=== PATIENT | male | born 1995 | race American Indian/Alaskan Native ===

== ENCOUNTER 2022-12-04 14:07 | Emergency (ER) | payer OTHER ==
[~2022-12-04] VITALS: Ht 177.8 cm; Wt 77.6 kg
--- OUTSIDE RECORDS SUMMARY | ~2022-12-04 | XMS | Continuity of Care Document ---
Demographics + + + | Address | [address] | | | [place] [address] | + + + | Preferred Language | Unknown | + + + | Marital Status | Never | + + + | Congregational Affiliation | Unknown | + + + | Race | or | + + + | Ethnic Group | Not or | + + + Author + + + | Author | [facility] | + + + | Organization | [facility] | + + + | Address | [address] [place] [address] | | | [place] [address] | + + + | Phone | | + + + Care Team Providers + + + + | Care Crisis Nurse Name | Role | Phone | + + + + Unavailable | Unavailable | + + + + Unavailable | Unavailable | + + + + Unavailable | Unavailable | + + + + Unavailable | Unavailable | + + + + Unavailable | Unavailable | + + + + Unavailable | Unavailable | + + + + Allergies and Intolerances + + + + + + | date | description | facility | reaction | severity | + + + + + + | (no date) | Mild | [facility] | (no reaction) | (no severity) | | | [facility] | | | + + + + + + | (no date) | No Known Drug | [facility] | (no reaction) | (no severity) | | | Allergies | | | | + + + + + + | (no date) | NO KNOWN | [facility] | (no reaction) | (no severity) | | | ALLERGIES | | | | + + + + + + Encounters No information. Functional Status No information. Immunizations + + + + | date | description | facility | + + + + | 2022-11-07 00:00 | No vaccine administered | [facility] | + + + + Medications + + + + | date | description | facility | + + + + | 2022-11-08 00:00 | | [facility] | | | SULFAMETHOXAZOLE/TRIMETHOPR | | | | IM DS | | + + + + | 2022-11-08 00:00 | | [facility] | | | SULFAMETHOXAZOLE/TRIMETHOPR | | | | IM DS | | + + + + Problems + + + + | date | description | facility | + + + + | 2021-12-04 00:00 | Leukocytosis | [facility] | + + + + | 2021-12-04 00:00 | Leukocytosis | [facility] | + + + + | 2021-12-04 00:00 | Leukocytosis | [facility] | + + + + | 2021-12-04 00:00 | Leukocytosis | [facility] | + + + + | 2021-12-04 00:00 | Acute renal failure | [facility] | + + + + | 2021-12-04 00:00 | Acute renal failure | [facility] | + + + + | 2021-12-04 00:00 | Acute renal failure | [facility] | + + + + | 2021-12-04 00:00 | Acute renal failure | [facility] | + + + + | 2022-01-03 14:09:40 | Withdrawal | [facility] | + + + + | 2022-01-03 15:00:07 | Opioid dependence with | [facility] | | | withdrawal | | + + + + | 2022-01-11 22:27:40 | Strain of unspecified | [facility] | | | muscle and tendon at ankle | | | | and foot level, left foot, | | | | initial encounter | | + + + + | 2022-11-07 00:00 | Skin disorder | [facility] | + + + + | 2022-11-07 00:00 | Skin disorder | [facility] | + + + + | 2022-11-07 00:00 | Skin disorder | [facility] | + + + + | 2022-11-08 00:00 | Cellulitis of left lower | [facility] | | | extremity | | + + + + | 2022-11-08 00:00 | Cellulitis of left lower | [facility] | | | extremity | | + + + + | 2022-11-08 08:05 | CELLULITIS OF LEFT LOWER | [facility] | | | LIMB | | + + + + | 2022-11-08 08:05 | TACHYCARDIA, UNSPECIFIED | [facility] | + + + + | 2022-12-03 00:00 | Patient left without being | [facility] | | | seen | | + + + + Procedures No information. Results/Labs +--------+--------+ +---------+--------+---------+ | test | date | facility | value | unit | notes | +--------+--------+ +---------+--------+---------+ + + | Result panel 1 | + + + + + + +---------+ + | | 2021-12-04 | [facility] | 425.24 | mg/dL | (missing) | | (unavailable | 19:48 | [facility] | | | | + + + + +---------+ + + + | Result panel 2 | + + + + + +------+ + + | | 2021-12-04 | [facility] | 26 | (missing) | (missing) | | (unavailable | 19:48 | [facility] | | | | + + + +------+ + + + + | Result panel 3 | + + + + + + + + + | | 2021-12-04 | [facility] | NEGATIVE | (missing) | (missing) | | (unavailable | 19:48 | [facility] | | | | + + + + + + + + + | Result panel 4 | + + + + + + + + + | | 2021-12-04 | [facility] | POSITIVE | (missing) | (missing) | | (unavailable | 19:48 | [facility] | | | | + + + + + + + + + | Result panel 5 | + + + + + + + + + | | 2021-12-04 | [facility] | NEGATIVE | (missing) | (missing) | | (unavailable | 19:48 | [facility] | | | | + + + + + + + + + | Result panel 6 | + + + + + + + + + | | 2021-12-04 | [facility] | NEGATIVE | (missing) | (missing) | | (unavailable | 19:48 | [facility] | | | | + + + + + + + + + | Result panel 7 | + + + + + + + + + | | 2021-12-04 | [facility] | NEGATIVE | (missing) | (missing) | | (unavailable | 19:48 | [facility] | | | | + + + + + + + + + | Result panel 8 | + + + + + + + + + | | 2021-12-04 | [facility] | NEGATIVE | (missing) | (missing) | | (unavailable | 19:48 | [facility] | | | | + + + + + + + + + | Result panel 9 | + + + + + + + + + | | 2021-12-04 | [facility] | NEGATIVE | (missing) | (missing) | | (unavailable | 19:48 | [facility] | | | | + + + + + + + + + | Result panel 10 | + + + + + + + + + | | 2021-12-04 | [facility] | NEGATIVE | (missing) | (missing) | | (unavailable | 19:48 | [facility] | | | | + + + + + + + + + | Result panel 11 | + + + + + + + + + | | 2021-12-04 | [facility] | NEGATIVE | (missing) | (missing) | | (unavailable | 19:48 | [facility] | | | | + + + + + + + + + | Result panel 12 | + + + + + + + + + | | 2021-12-04 | [facility] | POSITIVE | (missing) | (missing) | | (unavailable | 19:48 | [facility] | | | | + + + + + + + + + | Result panel 13 | + + + + + + + + + | | 2021-12-04 | [facility] | NEGATIVE | (missing) | (missing) | | (unavailable | 19:48 | [facility] | | | | + + + + + + + + + | Result panel 14 | + + + + + + + + + | | 2021-12-04 | [facility] | NEGATIVE | (missing) | (missing) | | (unavailable | 19:48 | [facility] | | | | + + + + + + + + + | Result panel 15 | + + + + + + + + + | | 2021-12-04 | [facility] | NEGATIVE | (missing) | (missing) | | (unavailable | 19:48 | [facility] | | | | + + + + + + + + + | Result panel 16 | + + + + + + + + + | | 2021-12-04 | [facility] | SEE SCANNED | (missing) | (missing) | | (unavailable | 19:48 | [facility] REPORT | | | | ) | | [facility] | | | | + + + + + + + + + | Result panel 17 | + + + + + + + + + | | 2021-12-04 | [facility] | YELLOW | (missing) | (missing) | | (unavailable | 19:48 | [facility] | | | | + + + + + + + + + | Result panel 18 | + + + + + + + + + | | 2021-12-04 | [facility] | CLOUDY | (missing) | (missing) | | (unavailable | 19:48 | [facility] | | | | + + + + + + + + + | Result panel 19 | + + + + + + + + + | | 2021-12-04 | [facility] | NEGATIVE | (missing) | (missing) | | (unavailable | 19:48 | [facility] | | | | + + + + + + + + + | Result panel 20 | + + + + + + + + + | | 2021-12-04 | [facility] | POSITIVE | (missing) | (missing) | | (unavailable | 19:48 | [facility] | | | | + + + + + + + + + | Result panel 21 | + + + + + + + + + | | 2021-12-04 | [facility] | NEGATIVE | (missing) | (missing) | | (unavailable | 19:48 | [facility] | | | | + + + + + + + + + | Result panel 22 | + + + + + + + + + | | 2021-12-04 | [facility] | >=1.030 | (missing) | (missing) | | (unavailable | 19:48 | [facility] | | | | + + + + + + + + + | Result panel 23 | + + + + + + + + + | | 2021-12-04 | [facility] | NEGATIVE | (missing) | (missing) | | (unavailable | 19:48 | [facility] | | | | + + + + + + + + + | Result panel 24 | + + + + + +-------+ + + | | 2021-12-04 | [facility] | 5.5 | (missing) | (missing) | | (unavailable | 19:48 | [facility] | | | | + + + +-------+ + + + + | Result panel 25 | + + + + + +------+ + + | | 2021-12-04 | [facility] | 30 | (missing) | (missing) | | (unavailable | 19:48 | [facility] | | | | + + + +------+ + + + + | Result panel 26 | + + + + + + + + + | | 2021-12-04 | [facility] | NORMAL | (missing) | (missing) | | (unavailable | 19:48 | [facility] | | | | + + + + + + + + + | Result panel 27 | + + + + + + + + + | | 2021-12-04 | [facility] | NEGATIVE | (missing) | (missing) | | (unavailable | 19:48 | [facility] | | | | + + + + + + + + + | Result panel 28 | + + + + + + + + + | | 2021-12-04 | [facility] | NEGATIVE | (missing) | (missing) | | (unavailable | 19:48 | [facility] | | | | + + + + + + + + + | Result panel 29 | + + + + + +-------+ + + | | 2021-12-04 | [facility] | 5.0 | (missing) | (missing) | | (unavailable | 20:44 | [facility] | | | | + + + +-------+ + + + + | Result panel 30 | + + + + + +--------+ + + | | 2021-12-04 | [facility] | 1.00 | (missing) | (missing) | | (unavailable | 20:44 | [facility] | | | | + + + +--------+ + + + + | Result panel 31 | + + + + + +-------+ + + | | 2021-12-04 | [facility] | 1.0 | (missing) | (missing) | | (unavailable | 20:44 | [facility] | | | | + + + +-------+ + + + + | Result panel 32 | + + + + + +------+ + + | | 2021-12-04 | [facility] | 29 | (missing) | (missing) | | (unavailable | 20:44 | [facility] | | | | + + + +------+ + + + + | Result panel 33 | + + + + + +------+ + + | | 2021-12-04 | [facility] | 27 | (missing) | (missing) | | (unavailable | 20:44 | [facility] | | | | + + + +------+ + + + + | Result panel 34 | + + + + + +-------+ + + | | 2021-12-04 | [facility] | 104 | (missing) | (missing) | | (unavailable | 20:44 | [facility] | | | | + + + +-------+ + + + + | Result panel 35 | + + + + + +---------+ + + | | 2021-12-04 | [facility] | 1.059 | (missing) | (missing) | | (unavailable | 20:44 | [facility] | | | | + + + +---------+ + + + + | Result panel 36 | + + + + + +------+ + + | | 2021-12-04 | [facility] | <3 | (missing) | (missing) | | (unavailable | 20:44 | [facility] | | | | + + + +------+ + + + + | Result panel 37 | + + + + + +------+ + + | | 2021-12-04 | [facility] | 86 | (missing) | (missing) | | (unavailable | 20:44 | [facility] | | | | + + + +------+ + + + + | Result panel 38 | + + + + + +-----+ + + | | 2021-12-04 | [facility] | 9 | (missing) | (missing) | | (unavailable | 20:44 | [facility] | | | | + + + +-----+ + + + + | Result panel 39 | + + + + + +-----+ + + | | 2021-12-04 | [facility] | 3 | (missing) | (missing) | | (unavailable | 20:44 | [facility] | | | | + + + +-----+ + + + + | Result panel 40 | + + + + + +-----+ + + | | 2021-12-04 | [facility] | 2 | (missing) | (missing) | | (unavailable | 20:44 | [facility] | | | | + + + +-----+ + + + + | Result panel 41 | + + + + + + + + + | | 2021-12-04 | [facility] | PRESENT | (missing) | (missing) | | (unavailable | 20:44 | [facility] | | | | + + + + + + + + + | Result panel 42 | + + + + + + + + + | | 2021-12-04 | [facility] | PRESENT | (missing) | (missing) | | (unavailable | 20:44 | [facility] | | | | + + + + + + + + + | Result panel 43 | + + + + + + + + + | | 2021-12-04 | [facility] | MARKED | (missing) | (missing) | | (unavailable | 20:44 | [facility] | | | | + + + + + + + + + | Result panel 44 | + + + + + +--------+ + + | | 2021-12-04 | [facility] | 10.0 | (missing) | (missing) | | (unavailable | 20:44 | [facility] | | | | + + + +--------+ + + + + | Result panel 45 | + + + + + +-------+ + + | | 2021-12-04 | [facility] | 5.0 | (missing) | (missing) | | (unavailable | 20:44 | [facility] | | | | + + + +-------+ + + + + | Result panel 46 | + + + + + + + + + | | 2021-12-04 | [facility] | NEGATIVE | (missing) | (missing) | | (unavailable | 22:08 | [facility] | | | | + + + + + + + + + | Result panel 47 | + + + + + + + + + | | 2021-12-04 | [facility] | NEGATIVE | (missing) | (missing) | | (unavailable | 22:08 | [facility] | | | | + + + + + + + + + | Result panel 48 | + + + + + + + + + | | 2021-12-04 | [facility] | NEGATIVE | (missing) | (missing) | | (unavailable | 22:08 | [facility] | | | | + + + + + + + + + | Result panel 49 | + + + + + + + + + | | 2021-12-04 | [facility] | NEGATIVE | (missing) | (missing) | | (unavailable | 22:08 | [facility] | | | | + + + + + + + + + | Result panel 50 | + + + + + +-------+ + + | | 2021-12-04 | [facility] | 0.8 | (missing) | (missing) | | (unavailable | 22:44 | [facility] | | | | + + + +-------+ + + + + | Result panel 51 | + + + + + + + + + | | 2021-12-05 | [facility] | SEE COMMENT | (missing) | (missing) | | (unavailable | 05:20 | [facility] | | | | + + + + + + + + + | Result panel 52 | + + + + + +-------+ + + | | 2021-12-05 | [facility] | 407 | (missing) | (missing) | | (unavailable | 05:20 | [facility] | | | | + + + +-------+ + + + + | Result panel 53 | + + + + + + + + + | | 2021-12-05 | [facility] | SEE SCANNED | (missing) | (missing) | | (unavailable | 05:20 | [facility] | | [facility] | | | | + + + + + + + + + | Result panel 54 | + + + + + + + + + | | 2021-12-05 | [facility] | SEE SCANNED | (missing) | (missing) | | (unavailable | 05:20 | [facility] | | [facility] | | | | + + + + + + + + + | Result panel 55 | + + + + + +-------+ + + | | 2021-12-06 | [facility] | 8.3 | (missing) | (missing) | | (unavailable | 05:34 | [facility] | | | | + + + +-------+ + + + + | Result panel 56 | + + + + + +--------+ + + | | 2021-12-06 | [facility] | 4.68 | (missing) | (missing) | | (unavailable | 05:34 | [facility] | | | | + + + +--------+ + + + + | Result panel 57 | + + + + + +-------+ + + | | 2021-12-06 | [facility] | 9.5 | (missing) | (missing) | | (unavailable | 05:34 | [facility] | | | | + + + +-------+ + + + + | Result panel 58 | + + + + + +--------+ + + | | 2021-12-06 | [facility] | 30.3 | (missing) | (missing) | | (unavailable | 05:34 | [facility] | | | | + + + +--------+ + + + + | Result panel 59 | + + + + + +--------+ + + | | 2021-12-06 | [facility] | 64.8 | (missing) | (missing) | | (unavailable | 05:34 | [facility] | | | | + + + +--------+ + + + + | Result panel 60 | + + + + + +--------+ + + | | 2021-12-06 | [facility] | 20.3 | (missing) | (missing) | | (unavailable | 05:34 | [facility] | | | | + + + +--------+ + + + + | Result panel 61 | + + + + + +--------+ + + | | 2021-12-06 | [facility] | 31.3 | (missing) | (missing) | | (unavailable | 05:34 | [facility] | | | | + + + +--------+ + + + + | Result panel 62 | + + + + + +--------+ + + | | 2021-12-06 | [facility] | 16.6 | (missing) | (missing) | | (unavailable | 05:34 | [facility] | | | | + + + +--------+ + + + + | Result panel 63 | + + + + + +-------+ + + | | 2021-12-06 | [facility] | 364 | (missing) | (missing) | | (unavailable | 05:34 | [facility] | | | | + + + +-------+ + + + + | Result panel 64 | + + + + + +--------+ + + | | 2021-12-06 | [facility] | 59.4 | (missing) | (missing) | | (unavailable | 05:34 | [facility] | | | | + + + +--------+ + + + + | Result panel 65 | + + + + + +--------+ + + | | 2021-12-06 | [facility] | 26.8 | (missing) | (missing) | | (unavailable | 05:34 | [facility] | | | | + + + +--------+ + + + + | Result panel 66 | + + + + + +-------+ + + | | 2021-12-06 | [facility] | 9.1 | (missing) | (missing) | | (unavailable | 05:34 | [facility] | | | | + + + +-------+ + + + + | Result panel 67 | + + + + + +-------+ + + | | 2021-12-06 | [facility] | 4.2 | (missing) | (missing) | | (unavailable | 05:34 | [facility] | | | | + + + +-------+ + + + + | Result panel 68 | + + + + + +-------+ + + | | 2021-12-06 | [facility] | 0.5 | (missing) | (missing) | | (unavailable | 05:34 | [facility] | | | | + + + +-------+ + + + + | Result panel 69 | + + + + + +------+---------+ + | | 2021-12-06 | [facility] | 97 | mg/dL | (missing) | | (unavailable | 05:34 | [facility] | | | | + + + +------+---------+ + + + | Result panel 70 | + + + + + +------+---------+ + | | 2021-12-06 | [facility] | 23 | mg/dL | (missing) | | (unavailable | 05:34 | [facility] | | | | + + + +------+---------+ + + + | Result panel 71 | + + + + + +--------+---------+ + | | 2021-12-06 | [facility] | 0.98 | mg/dL | (missing) | | (unavailable | 05:34 | [facility] | | | | + + + +--------+---------+ + + + | Result panel 72 | + + + + + +-------+ + + | | 2021-12-06 | [facility] | 110 | (missing) | (missing) | | (unavailable | 05:34 | [facility] | | | | + + + +-------+ + + + + | Result panel 73 | + + + + + +---------+ + + | | 2021-12-06 | [facility] | 23.46 | (missing) | (missing) | | (unavailable | 05:34 | [facility] | | | | + + + +---------+ + + + + | Result panel 74 | + + + + + +-------+ + + | | 2021-12-06 | [facility] | 140 | (missing) | (missing) | | (unavailable | 05:34 | [facility] | | | | + + + +-------+ + + + + | Result panel 75 | + + + + + +-------+ + + | | 2021-12-06 | [facility] | 4.7 | (missing) | (missing) | | (unavailable | 05:34 | [facility] | | | | + + + +-------+ + + + + | Result panel 76 | + + + + + +-------+ + + | | 2021-12-06 | [facility] | 107 | (missing) | (missing) | | (unavailable | 05:34 | [facility] | | | | + + + +-------+ + + + + | Result panel 77 | + + + + + +------+ + + | | 2021-12-06 | [facility] | 29 | (missing) | (missing) | | (unavailable | 05:34 | [facility] | | | | + + + +------+ + + + + | Result panel 78 | + + + + + +-------+ + + | | 2021-12-06 | [facility] | 8.7 | (missing) | (missing) | | (unavailable | 05:34 | [facility] | | | | + + + +-------+ + + + + | Result panel 79 | + + + + + +-------+---------+ + | | 2021-12-06 | [facility] | 8.2 | mg/dL | (missing) | | (unavailable | 05:34 | [facility] | | | | + + + +-------+---------+ + + + | Result panel 80 | + + + + + +--------+ + + | | 2022-11-08 | [facility] | 16.0 | (missing) | (missing) | | (unavailable | 08:41:07 | [facility] | | | | + + + +--------+ + + + + | Result panel 81 | + + + + + +------+ + + | | 2022-11-08 | [facility] | 74 | (missing) | (missing) | | (unavailable | 08:41:07 | [facility] | | | | + + + +------+ + + + + | Result panel 82 | + + + + + +------+ + + | | 2022-11-08 | [facility] | 15 | (missing) | (missing) | | (unavailable | 08:41:07 | [facility] | | | | + + + +------+ + + + + | Result panel 83 | + + + + + +-----+ + + | | 2022-11-08 | [facility] | 7 | (missing) | (missing) | | (unavailable | 08:41:07 | [facility] | | | | + + + +-----+ + + + + | Result panel 84 | + + + + + +-----+ + + | | 2022-11-08 | [facility] | 3 | (missing) | (missing) | | (unavailable | 08:41:07 | [facility] | | | | + + + +-----+ + + + + | Result panel 85 | + + + + + +-----+ + + | | 2022-11-08 | [facility] | 1 | (missing) | (missing) | | (unavailable | 08:41:07 | [facility] | | | | + + + +-----+ + + + + | Result panel 86 | + + + + + + + + + | | 2022-11-08 | [facility] | PRESENT | (missing) | (missing) | | (unavailable | 08:41:07 | [facility] | | | | + + + + + + + + + | Result panel 87 | + + + + + + + + + | | 2022-11-08 | [facility] | MARKED | (missing) | (missing) | | (unavailable | 08:41:07 | [facility] | | | | + + + + + + + + + | Result panel 88 | + + + + + + + + + | | 2022-11-08 | [facility] | MARKED | (missing) | (missing) | | (unavailable | 08:41:07 | [facility] | | | | + + + + + + + + + | Result panel 89 | + + + + + + + + + | | 2022-11-08 | [facility] | SEE | (missing) | (missing) | | (unavailable | 08:41:07 | [facility] COMMENTS | | | [facility] | | [facility] | | | | + + + + + + + + + | Result panel 90 | + + + + + + + + + | | 2022-11-08 | [facility] | SEE | (missing) | (missing) | | (unavailable | 08:41:07 | [facility] COMMENTS [facility] | [facility] | | [facility] | | | | + + + + + + + + + | Result panel 91 | + + + + + +--------+ + + | | 2022-11-08 | [facility] | 4.89 | (missing) | (missing) | | (unavailable | 08:41:07 | [facility] | | | | + + + +--------+ + + + + | Result panel 92 | + + + + + +-------+---------+ + | | 2022-11-08 | [facility] | 101 | mg/dL | (missing) | | (unavailable | 08:41:07 | [facility] | | | | + + + +-------+---------+ + + + | Result panel 93 | + + + + + +------+---------+ + | | 2022-11-08 | [facility] | 12 | mg/dL | (missing) | | (unavailable | 08:41:07 | [facility] | | | | + + + +------+---------+ + + + | Result panel 94 | + + + + + +--------+---------+ + | | 2022-11-08 | [facility] | 1.15 | mg/dL | (missing) | | (unavailable | 08:41:07 | [facility] | | | | + + + +--------+---------+ + + + | Result panel 95 | + + + + + +------+ + + | | 2022-11-08 | [facility] | 90 | (missing) | (missing) | | (unavailable | 08:41:07 | [facility] | | | | + + + +------+ + + + + | Result panel 96 | + + + + + +---------+ + + | | 2022-11-08 | [facility] | 10.43 | (missing) | (missing) | | (unavailable | 08:41:07 | [facility] | | | | + + + +---------+ + + + + | Result panel 97 | + + + + + +-------+ + + | | 2022-11-08 | [facility] | 133 | (missing) | (missing) | | (unavailable | 08:41:07 | [facility] | | | | + + + +-------+ + + + + | Result panel 98 | + + + + + +-------+ + + | | 2022-11-08 | [facility] | 3.4 | (missing) | (missing) | | (unavailable | 08:41:07 | [facility] | | | | + + + +-------+ + + + + | Result panel 99 | + + + + + +------+ + + | | 2022-11-08 | [facility] | 93 | (missing) | (missing) | | (unavailable | 08:41:07 | [facility] | | | | + + + +------+ + + + + | Result panel 100 | + + + + + +------+ + + | | 2022-11-08 | [facility] | 34 | (missing) | (missing) | | (unavailable | 08:41:07 | [facility] | | | | + + + +------+ + + + + | Result panel 101 | + + + + + +-------+ + + | | 2022-11-08 | [facility] | 9.4 | (missing) | (missing) | | (unavailable | 08:41:07 | [facility] | | | | + + + +-------+ + + + + | Result panel 102 | + + + + + +-------+ + + | | 2022-11-08 | [facility] | 9.6 | (missing) | (missing) | | (unavailable | 08:41:07 | [facility] | | | | + + + +-------+ + + + + | Result panel 103 | + + + + + +-------+---------+ + | | 2022-11-08 | [facility] | 8.7 | mg/dL | (missing) | | (unavailable | 08:41:07 | [facility] | | | | + + + +-------+---------+ + + + | Result panel 104 | + + + + + +-------+ + + | | 2022-11-08 | [facility] | 7.7 | (missing) | (missing) | | (unavailable | 08:41:07 | [facility] | | | | + + + +-------+ + + + + | Result panel 105 | + + + + + +-------+ + + | | 2022-11-08 | [facility] | 3.4 | (missing) | (missing) | | (unavailable | 08:41:07 | [facility] | | | | + + + +-------+ + + + + | Result panel 106 | + + + + + +-------+ + + | | 2022-11-08 | [facility] | 4.3 | (missing) | (missing) | | (unavailable | 08:41:07 | [facility] | | | | + + + +-------+ + + + + | Result panel 107 | + + + + + +--------+ + + | | 2022-11-08 | [facility] | 0.79 | (missing) | (missing) | | (unavailable | 08:41:07 | [facility] | | | | + + + +--------+ + + + + | Result panel 108 | + + + + + +-------+ + + | | 2022-11-08 | [facility] | 1.0 | (missing) | (missing) | | (unavailable | 08:41:07 [facility] | | | | + + + +-------+ + + + + | Result panel 109 | + + + + + +-------+ + + | | 2022-11-08 | [facility] | 135 | (missing) | (missing) | | (unavailable | 08:41:07 | [facility] | | | | + + + +-------+ + + + + | Result panel 110 | + + + + + +-------+ + + | | 2022-11-08 | [facility] | 185 | (missing) | (missing) | | (unavailable | 08:41:07 [facility] | | | | + + + +-------+ + + + + | Result panel 111 | + + + + + +------+ + + | | 2022-11-08 | [facility] | 96 | (missing) | (missing) | | (unavailable | 08:41:07 [facility] | | | | + + + +------+ + + + + | Result panel 112 | + + + + + +--------+ + + | | 2022-11-08 | [facility] | 30.2 | (missing) | (missing) | | (unavailable | 08:41:07 [facility] | | | | + + + +--------+ + + + + | Result panel 113 | + + + + + +--------+ + + | | 2022-11-08 | [facility] | 16.0 | (missing) | (missing) | | (unavailable | 08:41:07 [facility] | | | | + + + +--------+ + + + + | Result panel 114 | + + + + + +--------+ + + | | 2022-11-08 | [facility] | 4.89 | (missing) | (missing) | | (unavailable | 08:41:07 [facility] | | | | + + + +--------+ + + + + | Result panel 115 | + + + + + +-------+ + + | | 2022-11-08 | [facility] | 9.6 | (missing) | (missing) | | (unavailable | 08:41:07 [facility] | | | | + + + +-------+ + + + + | Result panel 116 | + + + + + +--------+ + + | | 2022-11-08 | [facility] | 30.2 | (missing) | (missing) | | (unavailable | 08:41:07 [facility] | | | | + + + +--------+ + + + + | Result panel 117 | + + + + + +--------+ + + | | 2022-11-08 | [facility] | 61.7 | (missing) | (missing) | | (unavailable | 08:41:07 [facility] | | | | + + + +--------+ + + + + | Result panel 118 | + + + + + +--------+ + + | | 2022-11-08 | [facility] | 19.6 | (missing) | (missing) | | (unavailable | 08:41:07 [facility] | | | | + + + +--------+ + + + + | Result panel 119 | + + + + + +--------+ + + | | 2022-11-08 | [facility] | 31.7 | (missing) | (missing) | | (unavailable | 08:41:07 [facility] | | | | + + + +--------+ + + + + | Result panel 120 | + + + + + +--------+ + + | | 2022-11-08 | [facility] | 15.9 | (missing) | (missing) | | (unavailable | 08:41:07 [facility] | | | | + + + +--------+ + + + + | Result panel 121 | + + + + + +-------+ + + | | 2022-11-08 | [facility] | 306 | (missing) | (missing) | | (unavailable | 08:41:07 [facility] | | | | + + + +-------+ + + + + | Result panel 122 | + + + + + +--------+ + + | | 2022-11-08 | [facility] | 61.7 | (missing) | (missing) | | (unavailable | 08:41:07 [facility] | | | | + + + +--------+ + + + + | Result panel 123 | + + + + + +------+ + + | | 2022-11-08 | [facility] | 74 | (missing) | (missing) | | (unavailable | 08:41:07 [facility] | | | | + + + +------+ + + + + | Result panel 124 | + + + + + +------+ + + | | 2022-11-08 | [facility] | 15 | (missing) | (missing) | | (unavailable | 08:41:07 [facility] | | | | + + + +------+ + + + + | Result panel 125 | + + + + + +-----+ + + | | 2022-11-08 | [facility] | 7 | (missing) | (missing) | | (unavailable | 08:41:07 [facility] | | | | + + + +-----+ + + + + | Result panel 126 | + + + + + +-----+ + + | | 2022-11-08 | [facility] | 3 | (missing) | (missing) | | (unavailable | 08:41:07 [facility] | | | | + + + +-----+ + + + + | Result panel 127 | + + + + + +-----+ + + | | 2022-11-08 | [facility] | 1 | (missing) | (missing) | | (unavailable | 08:41:07 [facility] | | | | + + + +-----+ + + + + | Result panel 128 | + + + + + + + + + | | 2022-11-08 | [facility] | PRESENT | (missing) | (missing) | | (unavailable | 08:41:07 [facility] | | | | + + + + + + + + + | Result panel 129 | + + + + + + + + + | | 2022-11-08 | [facility] | MARKED | (missing) | (missing) | | (unavailable | 08:41:07 [facility] | | | | + + + + + + + + + | Result panel 130 | + + + + + + + + + | | 2022-11-08 | [facility] | MARKED | (missing) | (missing) | | (unavailable | 08:41:07 [facility] | | | | + + + + + + + + + | Result panel 131 | + + + + + + + + + | | 2022-11-08 | [facility] | SEE | (missing) | (missing) | | (unavailable | 08:41:07 | [facility] COMMENTS | | | | ) | | [facility] | | | | + + + + + + + + + | Result panel 132 | + + + + + + + + + | | 2022-11-08 | [facility] | SEE | (missing) | (missing) | | (unavailable | 08:41:07 | [facility] | | | | + + + + + + + + + | Result panel 133 | + + + + + +--------+ + + | | 2022-11-08 | [facility] | 19.6 | (missing) | (missing) | | (unavailable | 08:41:07 [facility] | | | | + + + +--------+ + + + + | Result panel 134 | + + + + + +-------+---------+ + | | 2022-11-08 | [facility] | 101 | mg/dL | (missing) | | (unavailable | 08:41:07 [facility] | | | | + + + +-------+---------+ + + + | Result panel 135 | + + + + + +------+---------+ + | | 2022-11-08 | [facility] | 12 | mg/dL | (missing) | | (unavailable | 08:41:07 [facility] | | | | + + + +------+---------+ + + + | Result panel 136 | + + + + + +--------+---------+ + | | 2022-11-08 | [facility] | 1.15 | mg/dL | (missing) | | (unavailable | 08:41:07 [facility] | | | | + + + +--------+---------+ + + + | Result panel 137 | + + + + + +------+ + + | | 2022-11-08 | [facility] | 90 | (missing) | (missing) | | (unavailable | 08:41:07 [facility] | | | | + + + +------+ + + + + | Result panel 138 | + + + + + +---------+ + + | | 2022-11-08 | [facility] | 10.43 | (missing) | (missing) | | (unavailable | 08:41:07 [facility] | | | | + + + +---------+ + + + + | Result panel 139 | + + + + + +-------+ + + | | 2022-11-08 | [facility] | 133 | (missing) | (missing) | | (unavailable | 08:41:07 [facility] | | | | + + + +-------+ + + + + | Result panel 140 | + + + + + +-------+ + + | | 2022-11-08 | [facility] | 3.4 | (missing) | (missing) | | (unavailable | 08:41:07 [facility] | | | | + + + +-------+ + + + + | Result panel 141 | + + + + + +------+ + + | | 2022-11-08 | [facility] | 93 | (missing) | (missing) | | (unavailable | 08:41:07 [facility] | | | | + + + +------+ + + + + | Result panel 142 | + + + + + +------+ + + | | 2022-11-08 | [facility] | 34 | (missing) | (missing) | | (unavailable | 08:41:07 | [facility] | | | | + + + +------+ + + + + | Result panel 143 | + + + + + +-------+ + + | | 2022-11-08 | [facility] | 9.4 | (missing) | (missing) | | (unavailable | 08:41:07 [facility] | | | | + + + +-------+ + + + + | Result panel 144 | + + + + + +--------+ + + | | 2022-11-08 | [facility] | 31.7 | (missing) | (missing) | | (unavailable | 08:41:07 | [facility] | | | | + + + +--------+ + + + + | Result panel 145 | + + + + + +-------+---------+ + | | 2022-11-08 | [facility] | 8.7 | mg/dL | (missing) | | (unavailable | 08:41:07 | [facility] | | | | + + + +-------+---------+ + + + | Result panel 146 | + + + + + +-------+ + + | | 2022-11-08 | [facility] | 7.7 | (missing) | (missing) | | (unavailable | 08:41:07 | [facility] | | | | + + + +-------+ + + + + | Result panel 147 | + + + + + +-------+ + + | | 2022-11-08 | [facility] | 3.4 | (missing) | (missing) | | (unavailable | 08:41:07 | [facility] | | | | + + + +-------+ + + + + | Result panel 148 | + + + + + +-------+ + + | | 2022-11-08 | [facility] | 4.3 | (missing) | (missing) | | (unavailable | 08:41:07 [facility] | | | | + + + +-------+ + + + + | Result panel 149 | + + + + + +--------+ + + | | 2022-11-08 | [facility] | 0.79 | (missing) | (missing) | | (unavailable | 08:41:07 [facility] | | | | + + + +--------+ + + + + | Result panel 150 | + + + + + +-------+ + + | | 2022-11-08 | [facility] | 1.0 | (missing) | (missing) | | (unavailable | 08:41:07 [facility] | | | | + + + +-------+ + + + + | Result panel 151 | + + + + + +-------+ + + | | 2022-11-08 | [facility] | 135 | (missing) | (missing) | | (unavailable | 08:41:07 | [facility] | | | | + + + +-------+ + + + + | Result panel 152 | + + + + + +-------+ + + | | 2022-11-08 | [facility] | 185 | (missing) | (missing) | | (unavailable | 08:41:07 | [facility] | | | | + + + +-------+ + + + + | Result panel 153 | + + + + + +------+ + + | | 2022-11-08 | [facility] | 96 | (missing) | (missing) | | (unavailable | 08:41:07 [facility] | | | | + + + +------+ + + + + | Result panel 154 | + + + + + +--------+ + + | | 2022-11-08 | [facility] | 15.9 | (missing) | (missing) | | (unavailable | 08:41:07 [facility] | | | | + + + +--------+ + + + + | Result panel 155 | + + + + + +-------+ + + | | 2022-11-08 | [facility] | 306 | (missing) | (missing) | | (unavailable | 08:41:07 | [facility] | | | | + + + +-------+ + + + + | Result panel 156 | + + + + + + + + + | | 2022-11-08 | [facility] | BETA | (missing) | (missing) | | (unavailable | 10:51:07 | [facility]PT[facility] | | | | ) | | [facility] | [facility] A | | | + + + + + + + + + | Result panel 157 | + + + + + + + + + | | 2022-11-08 | [facility] | | (missing) | (missing) | | (unavailable | 10:51:07 | [facility]HY[facility] | | | | ) | | [facility] | US AUREUS | | | + + + + + + + Social History + + + + | date | description | facility | + + + + | 2022-11-07 00:00 | Never smoker | [facility] | + + + + Vital Signs + + + +---------+ | date | measurement | value | units | + + + +---------+ | 2021-12-04 00:00 | BMI | 24.5 | kg/m2 | + + + +---------+ | 2021-12-04 00:00 | height_metric | 177.8 | cm | + + + +---------+ | 2021-12-04 00:00 | height_standard | 70 | in | + + + +---------+ | 2021-12-04 00:00 | weight_metric | 77.6 | kg | + + + +---------+ | 2021-12-04 00:00 | weight_standard | 171.08 | lb | + + + +---------+ | 2021-12-06 00:00 | BP_diastolic | 64 | mmHg | + + + +---------+ | 2021-12-06 00:00 | BP_systolic | 125 | mmHg | + + + +---------+ | 2021-12-06 00:00 | heart_rate | 68 | /min | + + + +---------+ | 2021-12-06 00:00 | o2_saturation | 100 | % | + + + +---------+ | 2021-12-06 00:00 | respiration_rate | 16 | /min | + + + +---------+ | 2021-12-06 00:00 | temperature_metric | 36.83 | C | | | | | | + + + +---------+ | 2021-12-06 00:00 | | 98.3 | F | | | temperature_standar | | | | | d | | | + + + +---------+ | 2022-11-07 00:00 | BMI | 24.5 | kg/m2 | + + + +---------+ | 2022-11-07 00:00 | BP_diastolic | 80 | mmHg | + + + +---------+ | 2022-11-07 00:00 | BP_systolic | 144 | mmHg | + + + +---------+ | 2022-11-07 00:00 | heart_rate | 109 | /min | + + + +---------+ | 2022-11-07 00:00 | height_metric | 177.8 | cm | + + + +---------+ | 2022-11-07 00:00 | height_standard | 70 | in | + + + +---------+ | 2022-11-07 00:00 | o2_saturation | 98 | % | + + + +---------+ | 2022-11-07 00:00 | respiration_rate | 18 | /min | + + + +---------+ | 2022-11-07 00:00 | temperature_metric | 37.78 | C | | | | | | + + + +---------+ | 2022-11-07 00:00 | | 100 | F | | | temperature_standar | | | | | d | | | + + + +---------+ | 2022-11-07 00:00 | weight_metric | 77.56 | kg | + + + +---------+ | 2022-11-07 00:00 | weight_standard | 170.99 | lb | + + + +---------+ | 2022-11-07 00:00 | weight_standard | 171 | lb | + + + +---------+ | 2022-11-08 00:00 | BMI | 24.5 | kg/m2 | + + + +---------+ | 2022-11-08 00:00 | BP_diastolic | 66 | mmHg | + + + +---------+ | 2022-11-08 00:00 | BP_systolic | 118 | mmHg | + + + +---------+ | 2022-11-08 00:00 | heart_rate | 78 | /min | + + + +---------+ | 2022-11-08 00:00 | height_metric | 177.8 | cm | + + + +---------+ | 2022-11-08 00:00 | height_standard | 70 | in | + + + +---------+ | 2022-11-08 00:00 | o2_saturation | 98 | % | + + + +---------+ | 2022-11-08 00:00 | respiration_rate | 18 | /min | + + + +---------+ | 2022-11-08 00:00 | temperature_metric | 36.72 | C | | | | | | + + + +---------+ | 2022-11-08 00:00 | | 98.1 | F | | | temperature_standar | | | | | d | | | + + + +---------+ | 2022-11-08 00:00 | weight_metric | 77.56 | kg | + + + +---------+ | 2022-11-08 00:00 | weight_standard | 170.99 | lb | + + + +---------+ | 2022-11-08 00:00 | weight_standard | 171 | lb | + + + +---------+ | 2022-12-03 00:00 | BMI | 24.5 | kg/m2 | + + + +---------+ | 2022-12-03 00:00 | BP_diastolic | 00 | mmHg | + + + +---------+ | 2022-12-03 00:00 | BP_systolic | 00 | mmHg | + + + +---------+ | 2022-12-03 00:00 | heart_rate | 00 | /min | + + + +---------+ | 2022-12-03 00:00 | height_metric | 177.8 | cm | + + + +---------+ | 2022-12-03 00:00 | height_standard | 70 | in | + + + +---------+ | 2022-12-03 00:00 | o2_saturation | 00 | % | + + + +---------+ | 2022-12-03 00:00 | respiration_rate | 00 | /min | + + + +---------+ | 2022-12-03 00:00 | temperature_metric | -17.78 | C | | | | | | + + + +---------+ | 2022-12-03 00:00 | | 0 | F | | | temperature_standar | | | | | d | | | + + + +---------+ | 2022-12-03 00:00 | weight_metric | 77.56 | kg | + + + +---------+ | 2022-12-03 00:00 | weight_standard | 170.99 | lb | + + + +---------+ | 2022-12-03 00:00 | weight_standard | 171 | lb | + + + +---------+"
--- OUTSIDE RECORDS SUMMARY | ~2022-12-04 | XMS | Continuity of Care Document ---
Demographics + + + | Address | [address] | | | [place] [address] | + + + | Preferred Language | Unknown | + + + | Marital Status | Never | + + + | Pentecostalism Affiliation | Unknown | + + + | Race | or | + + + | Ethnic Group | Not or | + + + Author + + + | Author | [facility] | + + + | Organization | [facility] | + + + | Address | [address] [place] [address] | | | [place] [address] | + + + | Phone | | + + + Care Team Providers + + + + | Care Real Estate Rep Name | Role | Phone | + [...] 2022-11-07 00:00 | No vaccine administered | [facility] | + + + + Medications + + + + | date | description | facility | + + + + | 2022-11-08 00:00 | | [facility] | | | SULFAMETHOXAZOLE/TRIMETHOPR | | | | IM DS | | + + + + | 2022-11-08 00:00 | | [facility] | | | SULFAMETHOXAZOLE/TRIMETHOPR | | | | IM DS | | + + + + Problems + + + + | date | description | facility | + + + + | 2021-12-04 00:00 | Leukocytosis | [facility] | + + + + | 2021-12-04 00:00 | Leukocytosis | [facility] | + + + + | 2021-12-04 00:00 | Leukocytosis | [facility] | + + + + | 2021-12-04 00:00 | Leukocytosis | [facility] | + + + + | 2021-12-04 00:00 | Acute renal failure | [facility] | + + + + | 2021-12-04 00:00 | Acute renal failure | [facility] | + + + + | 2021-12-04 00:00 | Acute renal failure | [facility] | + + + + | 2021-12-04 00:00 | Acute renal failure | [facility] | + + + + | 2022-01-03 [...] | 2022-11-07 00:00 | Skin disorder | [facility] | + + + + | 2022-11-07 00:00 | Skin disorder | [facility] | + + + + | 2022-11-07 00:00 | Skin disorder | [facility] | + + + + | 2022-11-08 00:00 | Cellulitis of left lower | [facility] | | | extremity | | + + + + | 2022-11-08 00:00 | Cellulitis of left lower | [facility] | | | extremity | | + + + + | 2022-11-08 08:05 | CELLULITIS OF LEFT LOWER | [facility] | | | LIMB | | + + + + | 2022-11-08 08:05 | TACHYCARDIA, UNSPECIFIED | [facility] | + + + + | 2022-12-03 00:00 | [facility] left without being | [facility] | | | seen | | [...] 2022-11-07 00:00 | Never smoker | [facility] | + + + + Vital [...]
[~2022-12-04 14:07] MED LIST: AMOXICILLIN500 MG PO; BACTRIM DS TAB1 EACH PO; CEPHALEXIN500 M1 PO; PROMETHAZINE-COD5 ML PO; SUDOGEST30 MG PO; ZYRTEC10 MG PO
--- OUTSIDE RECORDS SUMMARY | 2022-12-04 14:09 | XMS ---
PreManage Notification: [facility]ENK[employer] [address] [address] [employer] Events No recent Security Events currently on file CRITERIA MET - [facility] - 2 Visits in 30 Days CARE PROVIDERS -Luis- Dentist: [facility] PHONE: [phone] Mehnaz has no Care Guidelines for this patient. [place] VISIT COUNT (12 MO.) [address] [place] [address] [facility] NOTE: Visits indicate total known visits. ED/UCC VISIT TRACKING (12 MO.) 12/04/2022 14:08 [facility] [place] TYPE: Emergency COMPLAINT: - R ARM PAIN 12/03/2022 08:26 [facility] TYPE: Emergency COMPLAINT: - BOTH ARMS SWOLLEN/PAIN 11/08/2022 08:05 [facility] [place] TYPE: Emergency COMPLAINT: - LT ANKLE SWELLING/PAIN DIAGNOSES: - Cellulitis of left lower limb - Tachycardia, unspecified 11/07/2022 17:54 [facility] [place] TYPE: Emergency COMPLAINT: - LT FOOT PAIN/SWELLING 01/11/2022 21:54 [facility] TYPE: Emergency COMPLAINT: - Lt foot pain DIAGNOSES: - Strain of unspecified muscle and tendon at ankle and foot level, left foot, initial encounter - Ankle Pain - Lt foot pain 01[facility]03[facility]2022 14[facility]INT: - Withdrawls DIAGNOSES: - Opioid dependence with withdrawal - Withdrawal - Withdrawls 12/04/2021 19:26 [facility] [place] TYPE: Emergency COMPLAINT: - WITHDRAWALS INPATIENT VISIT TRACKING (12 MO.) 12/04/2021 19:27 [facility] [place] TYPE: Observation COMPLAINT: - ACUTE RENAL FAIL,LEUKOCYTOSIS,METH,FENTANYL ABUSE DIAGNOSES: - Acute kidney failure, unspecified - Adverse effect of fentanyl or fentanyl analogs, initial encounter - Contact with and (suspected) exposure to COVID-19 - Elevated white blood cell count, unspecified - Iron deficiency anemia, unspecified - Opioid abuse with withdrawal - Other stimulant abuse with withdrawal - Poisoning by amphetamines, accidental (unintentional), initial encounter - Rhabdomyolysis [email or web address]
[2022-12-04] MEDS ORDERED: CEPHALEXIN500 MG PO (15:15)
[2022-12-04] MEDS ORDERED: BACTRIM DS TAB1 EACH PO (15:15)
[2022-12-04 15:44] VITALS: BP 108/67
== END 2022-12-04 15:45 | disposition home or self-care (01) ==
LOC: ED 14:07
DX: L03.113 Cellulitis of right upper limb (principal)
CPT/HCPCS: 99283; A9270

== ENCOUNTER 2024-06-11 23:47 | Emergency (ER) | payer OTHER ==
[~2024-06-11] VITALS: Ht 177.8 cm; Wt 89.8 kg
[~2024-06-11 23:47] MED LIST changes: +CEPHALEXIN500 MG PO
[2024-06-12 00:35] VITALS: BP 151/84
== END 2024-06-12 00:35 | disposition home or self-care (01) ==
LOC: ED 23:47
DX: B34.9 Viral infection, unspecified (principal); F15.10 Other stimulant abuse, uncomplicated
CPT/HCPCS: 71046; 99284-25

== ENCOUNTER 2024-06-16 13:15 | Emergency (ER) | payer OTHER ==
[~2024-06-16] VITALS: Ht 177.8 cm; Wt 83.9 kg
--- OUTSIDE RECORDS SUMMARY | 2024-06-16 13:21 | XMS ---
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 - 2 Visits in 30 Days CARE PROVIDERS [facility] Current PHONE: [phone] Mehnaz has no Care Guidelines for this patient. E.Mariely VISIT COUNT (12 MO.) 2 [facility] TOTAL 2 NOTE: Visits indicate total known visits. ED/UCC VISIT TRACKING (12 MO.) 06/16/2024 13:15 [facility] TYPE: Emergency COMPLAINT: - OD 06/11/2024 23:48 [facility] TYPE: Emergency COMPLAINT: - COLD SYMPTOMS DIAGNOSES: - Cough, unspecified - Other stimulant abuse, uncomplicated - Viral infection, unspecified INPATIENT VISIT TRACKING (12 MO.) No inpatient visits to display in this time frame [email or web address]
[2024-06-16 13:46] VITALS: BP 128/79
== END 2024-06-16 13:46 | disposition left against medical advice (07) ==
LOC: ED 13:15
DX: F15.10 Other stimulant abuse, uncomplicated (principal); J06.9 Acute upper respiratory infection, unspecified; Z53.29 Procedure and treatment not carried out because of patient's decision for other reasons
CPT/HCPCS: 99283